=== PATIENT | male | born 1950 | race Caucasian/White ===

== ENCOUNTER 2019-04-24 15:30 | Emergency (ER) | payer OTHER ==
[2019-04-24 15:40] VITALS: BP 140/81; PULSE 98; TEMP 97.7; BMI 29.2
--- NOTE | 2019-04-24 15:54 | PDOC ---
History of Present Illness - General Chief Complaint: Back Pain Stated Complaint: PAIN Time Seen by Provider: 04/24/19 15:52 History Source: Patient - History of Present Illness Initial Comments: 04/24/19 16:28 Chief complaint: Back pain Patient is 68-year-old male with history of back problems, had been having back pain for a month, worse with movement or walking who has no other medical issues who was seen at [facility] 1 week ago, had x-rays of his neck and lower back told he has arthritis, given Toradol and is still having pain. Patient is requesting MRI. Patient has no numbness, incontinence or recent trauma. Patient has no saddle anesthesia. Patient is able to stand, gets pain in the left side of his lower back when he stands or tries to walk and the pain goes down his leg. No fever or recent surgery. GENERAL/CONSTITUTIONAL: No fever, weakness. dizziness HEAD, EYES, EARS, NOSE AND THROAT: No change in vision. No ear pain or discharge. No sore throat. CARDIOVASCULAR: No chest pain RESPIRATORY: No shortness of breath or cough GASTROINTESTINAL: No pain, nausea, vomiting, diarrhea or constipation GENITOURINARY: No dysuria MUSCULOSKELETAL: No neck or back pain SKIN: No rash NEUROLOGIC: No headache, vertigo, loss of consciousness, or loss of sensation. GENERAL: The patient is awake, alert, and fully oriented, in no acute distress. HEAD: Normal with no signs of trauma. EYES: Pupils equal, round and reactive to light, sclera anicteric, conjunctiva clear. ENT: pharynx: no erythema, no exudate, uvula midline NECK: supple CHEST: clear, nontender, rr ABD: soft, nontender BACK: Tenderness to the left SI, otherwise no tenderness or signs of injury EXTREMITIES: Normal range of motion, no edema. Neurovascular intact NEUROLOGICAL: Normal speech, cranial nerves II through XII grossly intact, no gross focal abnormalities. Patient is able to ambulate but has pain. SKIN: Warm, Dry Past History - Past Medical History Allergies/Adverse Reactions: Allergies Allergy/AdvReac Type Severity Reaction Status Date / Time No Known Allergies Allergy Verified 04/24/19 15:33 Home Medications: Ambulatory Orders Meloxicam [Mobic] 15 mg PO DAILY #14 tablet 04/24/19 Oxycodone HCl/Acetaminophen [Percocet 5-325 mg Tablet] 1 tab PO Q6H PRN #24 tablet MDD 4 04/24/19 COPD: No - Psycho Social/Smoking Cessation Hx Smoking History: Never smoked Hx Alcohol Use: No Drug/Substance Use Hx: No *Physical Exam - Vital Signs Last Vital Signs Temp Pulse Resp BP Pulse Ox 97.7 F 98 H 20 140/81 98 04/24/19 15:33 04/24/19 15:33 04/24/19 15:33 04/24/19 15:33 04/24/19 15:33 Medical Decision Making - Medical Decision Making 04/24/19 16:31 68-year-old male with no significant medical history other than back pain for the last month who was seen last week had x-rays and told he has arthritis. Patient has a follow-up appointment at the clinic next week. Patient had wanted MRI today. Patient has no symptoms that make an MRI necessary today. No numbness, no incontinence or saddle anesthesia. Patient has had no fever or recent surgery or any other complaints. Patient is requesting Toradol shot. Patient will also get Percocet as he is in significant pain when moving. Patient is able to ambulate better after second Percocet, patient still has his discomfort. X-rays of the lower back and the hip show no acute issue. Spoke to daughter on the phone as per 's request and explained that patient needs to follow-up with orthopedist and that we will prescribe him pain medicine. All questions were answered. Discussed issues, findings, results, applicable medications and treatments and follow-up. All these were understood and all questions were answered 04/24/19 18:02 Discharge - Discharge Information Problems reviewed: Yes Clinical Impression/Diagnosis: Back pain of lumbar region with sciatica Condition: Stable Disposition: HOME - Admission No - Additional Discharge Information Prescriptions: Meloxicam [Mobic] 15 mg PO DAILY #14 tablet Oxycodone HCl/Acetaminophen [Percocet 5-325 mg Tablet] 1 tab PO Q6H PRN #24 tablet MDD 4 PRN Reason: Back Pain Prescription Drug Monitoring Program (I-STOP) results: I-STOP not reviewed - Follow up/Referral Referrals: Austin Collier DO [Staff Physician] - - Patient Discharge Instructions Patient Printed Discharge Instructions: DI for Low Back Pain Additional Instructions: No heavy lifting or bending Apply ice to the area 20 minutes every 2 hours for the next 2 days Continue taking Motrin 600 mg every 6 hours for pain. If still in pain he can also take Percocet one to 2 tablets every 4 hours. Return to the nearest ER if numbness, weakness, severe pain, problems with urinating or having bowel movements. Call orthopedist today for an appointment for further evaluation No levantar objetos pesados o doblarse Aplique hielo en el alona 20 minutos cada 2 horas shanta los prximos 2 myers. Contine tomando Motrin 600 mg cada 6 horas para el dolor. Si todava tiene dolor, tambin puede aby Percocet de ankush a 2 tabletas cada 4 horas. Regrese a la naman de emergencias ms cercana si tiene entumecimiento, debilidad , dolor intenso, problemas para orinar o defecar. Llame al ortopedista hoy para ankush bing para ankush evaluacin adicional. Print Language: SAMMARINESE - Post Discharge Activity Work/Back to School Note: Back to Work
[2019-04-24] MEDS ORDERED: KETOROLAC TROMETHAMINE 30 MG/1 ML VIAL IM ONE (16:03)
[2019-04-24] MEDS ORDERED: KETOROLAC TROMETHAMINE 30 MG/1 ML VIAL ONE (16:06)
== END 2019-04-24 18:21 | disposition home or self-care (01) ==
LOC: JERFT 15:30
PROC: 3E0233Z Introduction of Anti-inflammatory into Muscle, Percutaneous Approach (ICD-10-PCS; principal; 2019-04-24)
DX: M54.40 Lumbago with sciatica, unspecified side (principal)
CPT/HCPCS: 72100-TC-FY; 73523-TC-FY; 99281-25

== ENCOUNTER 2020-12-25 07:21 | Emergency (ER) | payer OTHER ==
[2020-12-25 07:40] VITALS: BMI 27.4
[2020-12-25] MEDS ORDERED: ACETAMINOPHEN 1000 MG/100 ML VIAL (NON FORMULARY) IVPB ONE (08:19)
[2020-12-25] MEDS ORDERED: SODIUM CHLORIDE 1,000 ML IV STA (08:19)
[2020-12-25] MEDS ORDERED: ACETAMINOPHEN INJECTION 100 ML IVPB ONE (08:44)
[2020-12-25 09:26] LABS: BASO % 0.5 % (0-2.0); EOS % 2.6 % (0-4.5); HEMATOCRIT 36.8 % (35.4-49); HEMOGLOBIN 12.5 GM/dL (11.7-16.9); LYMPH % 24.3 % (8-40); MCH 29.6 pg (25.7-33.7); MCHC 33.9 g/dl (32.0-35.9); MEAN CELL VOLUME 87.3 fl (80-96); MEAN PLT VOLUME 6.7 fl (7.5-11.1); MONO % 5.1 % (3.8-10.2); NEUT % 67.5 % (42.8-82.8); PLATELET COUNT 240 10^3/uL (134-434); RBC 4.21 M/mm3 (4.00-5.60); RDW 14.1 % (11.9-15.9); WHITE BLOOD COUNT 5.3 K/mm3 (4.0-10.0)
[2020-12-25 09:31] LABS: INR 0.96 (0.83-1.09); PROTHROMBIN TIME (PATIENT) 11.8 SEC (9.7-13.0)
[2020-12-25 09:37] LABS: URINE APPEARANCE TURBID; URINE BILIRUBIN NEGATIVE (NEGATIVE); URINE COLOR YELLOW; URINE GLUCOSE (UA) NEGATIVE (NEGATIVE); URINE KETONE NEGATIVE (NEGATIVE); URINE LEUK ESTERASE NEGATIVE (NEGATIVE); URINE NITRITE NEGATIVE (NEGATIVE); URINE PROTEIN NEGATIVE (NEGATIVE); URINE UROBILINOGEN 0.2 mg/dL (0.2-1.0)
[2020-12-25 09:55] LABS: CALCIUM 8.6 mg/dL (8.5-10.1)
[2020-12-25 09:57] LABS: BLOOD UREA NITROGEN 17.3 mg/dL (7-18)
[2020-12-25 10:00] LABS: CREATININE 0.8 mg/dL (0.55-1.3)
[2020-12-25 10:06] LABS: BILIRUBIN,TOTAL 0.9 mg/dL (0.2-1)
[2020-12-25] MEDS ORDERED: KETOROLAC TROMETHAMINE 60 MG/2 ML VIAL IVPUSH ONE (10:58)
[2020-12-25] MEDS ORDERED: KETOROLAC TROMETHAMINE 15 MG/ML VIAL ONE (11:10)
[2020-12-25 12:14] VITALS: BP 143/75; PULSE 64; TEMP 97.3
== END 2020-12-25 12:15 | disposition home or self-care (01) ==
LOC: JER 07:21
PROC: 3E0333Z Introduction of Anti-inflammatory into Peripheral Vein, Percutaneous Approach (ICD-10-PCS; principal; 2020-12-25)
PROC: 3E0333Z Introduction of Anti-inflammatory into Peripheral Vein, Percutaneous Approach (ICD-10-PCS; 2020-12-25)
PROC: 3E0337Z Introduction of Electrolytic and Water Balance Substance into Peripheral Vein, Percutaneous Approach (ICD-10-PCS; 2020-12-25)
DX: R10.32 Left lower quadrant pain (principal)
CPT/HCPCS: 36415; 74176-TC; 80053; 81003; 85025; 85610; 87086; 99284-25; J0131